=== PATIENT | female | born 2000 | race Caucasian/White ===

== ENCOUNTER 2019-01-03 15:39 | Emergency (ER) | payer MEDICAID ==
[~2019-01-03] VITALS: Ht 152.4 cm; Wt 52.3 kg
[2019-01-03] MEDS ORDERED: GOOD NEIGHBOR200 M1 PO (15:53)
[2019-01-03 16:40] LABS: HEMATOCRIT 39.8 % (35.0-45.0); HEMOGLOBIN 13.6 g/dL (12.0-15.0); MEAN CELL VOLUME 91 fl (78-95); MEAN CORPUSCULAR HEMOGLOBIN 31 pg (26-32); MEAN CORPUSCULAR HGB CONC 34 g/dL (33-37); MEAN PLATELET VOLUME 10.5 fl (7.4-10.4); PLATELET COUNT 282 K/mm3 (130-400); WHITE BLOOD COUNT 14.6 K/mm3 (4.8-10.8)
[2019-01-03 16:45] LABS: ALBUMIN 4.4 g/dL (3.5-5.0); AST-SGOT 15 U/L (14-36); CALCIUM 9.5 mg/dL (8.4-10.2); CARBON DIOXIDE 29 mmol/L (22-30); GLUCOSE 99 mg/dL (65-105); POTASSIUM 3.9 mmol/L (3.6-5.0); SODIUM 141 mmol/L (137-145); TOTAL BILIRUBIN 0.4 mg/dL (0.2-1.3); TOTAL PROTEIN 7.3 g/dL (6.3-8.2)
[2019-01-03 16:58] LABS: LYMPHOCYTE 8 % (20-51); MONOCYTE 6 % (1-10); NEUTROPHILS 85 % (42-75)
[2019-01-03 16:59] LABS: ALT/SGPT < 3 U/L (9-52)
[2019-01-03 18:22] LABS: URINE APPEARANCE CLEAR; URINE COLOR PALE YELLOW
[2019-01-03 18:23] LABS: URINE BILIRUBIN NEGATIVE (NEGATIVE); URINE BLOOD NEGATIVE (NEGATIVE); URINE GLUCOSE NEGATIVE (NEGATIVE); URINE KETONE NEGATIVE (NEGATIVE); URINE LEUKOCYTE ESTERASE NEGATIVE (NEGATIVE); URINE NITRATE NEGATIVE (NEGATIVE); URINE PROTEIN(semi-quant) TRACE mg/dL (NEGATIVE); URINE UROBILINOGEN NORMAL (NORMAL); URINE WBC 0-1 /hpf (0-3)
[2019-01-03 21:33] LABS: CLUE CELLS NOT OBSERVED (Not Observd)
[2019-01-03 23:56] VITALS: BP 91/62
[2019-01-06 18:07] LABS: GRAM STAIN AMS
== END 2019-01-03 23:56 | disposition home or self-care (01) ==
LOC: ED 15:39
PROVIDERS: Nurse Practitioner Family
DX: R10.31 Right lower quadrant pain (principal); R11.2 Nausea with vomiting, unspecified
CPT/HCPCS: J2270; J2405; J2550; J7030; J7040; Q0111; Q9967

== ENCOUNTER → 2019-01-04 | Outpatient (CLI) | payer MEDICAID ==
[2019-01-03 23:56] VITALS: BP 91/62
[~2019-01-04] MED LIST: GOOD NEIGHBOR200 M1 PO
[2019-01-04 09:43] LABS: HEMATOCRIT 38.3 % (35.0-45.0); HEMOGLOBIN 12.7 g/dL (12.0-15.0); MEAN PLATELET VOLUME 9.8 fl (7.4-10.4); RED BLOOD COUNT 4.13 M/mm3 (4.10-5.30); RED CELL DISTRIBUTION WIDTH 12.1 % (11.5-14.5); WHITE BLOOD COUNT 7.9 K/mm3 (4.8-10.8)
== END ==
LOC: LAB 09:27
PROVIDERS: Nurse Practitioner Family
DX: R10.9 Unspecified abdominal pain (principal); R11.2 Nausea with vomiting, unspecified